=== PATIENT | female | born 1970 | race Caucasian/White ===

== ENCOUNTER 2021-11-14 14:52 | Outpatient (CLI) | payer OTHER | END 2021-11-14 15:00 | disposition home or self-care (01) | LOC: RAD 14:52 | PROVIDERS: ATTEND Surgery Plastic and Reconstructive Surgery | DX: Z01.811 Encounter for preprocedural respiratory examination (principal) ==

== ENCOUNTER 2022-01-05 10:43 | Outpatient (CLI) | payer OTHER | END 2022-01-05 11:27 | disposition home or self-care (01) | LOC: RAD 10:43 | DX: M54.50 Low back pain, unspecified (principal) ==